=== PATIENT | female | born 1965 | race Caucasian/White ===

== ENCOUNTER 2018-08-12 12:15 | Inpatient (IN) ==
[2018-08-12 13:38] LABS: MCH 30.4 PG (27-31); MCHC 34.9 g/dL (33-37); MCV 87.2 FL (81-99); MPV 10.6 FL (7.4-10.4); RBC 4.93 XMIL (4.2-5.4); RDW 13.6 % (11.5-14.5); WBC 9.87 X1000 (4.8-10.8)
[2018-08-12 14:17] LABS: AGAP 15; BUN 13 mg/dL (8-22); CALCIUM 10.2 mg/dL (8.8-10.2); CHLORIDE 92 mmol/L (98-107); COSMO 264; CREATININE 0.9 mg/dL (0.5-0.9); ESTIMATED GFR > 60; GLUCOSE 88 mg/dL (70-104); POTASSIUM 4.1 mmol/L (3.5-5.1); SODIUM 132 mmol/L (136-145); TCO2 25 mmol/L (25-35)
--- NOTE | 2018-08-12 15:41 | Diag Imaging Result Doc PS360 ---
CT ANGIOGRAM AORTA W/RUNOFF - 08/12/2018 INDICATION: Left Ischemic LEG TECHNIQUE: Axial CT images were obtained after administering intravenous contrast. Three-dimensional angiographic images were generated. COMPARISON: None FINDINGS: The lung bases are clear and the heart size is normal. Abdominal organs are all normal. No bowel obstruction or inflammation. The abdominal aorta is grossly normal. The right common iliac is small in caliber and somewhat diseased proximally, with mild stenosis of about 25%. There is severe stenosis of the internal iliac artery with about 75% narrowing. There is also similarly severe stenosis of the external iliac artery. The common femoral artery demonstrates severe stenosis distally with about 75% narrowing. The deep femoral artery is patent. The superficial femoral artery is patent. The popliteal artery is patent. There is a three-vessel runoff to the right foot. The left common iliac artery and its branches are mostly all thrombosed. There is reconstitution of the left common iliac artery by an inferior epigastric branch. There is a very small caliber common femoral artery without much disease. Likewise, there is a very small caliber superficial and deep femoral artery without any significant stenosis. The popliteal artery is patent. The posterior tibial artery runs off to the foot. IMPRESSION: Peripheral vascular disease, mainly inflow disease. 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 Reconstitution of the left common femoral artery by an inferior epigastric branch. This exam was performed using automated exposure control, adjustment of mA or kV according to patient size, and/or use of iterative reconstruction technique Electronically signed by Cameron Shields 08/12/2018 3:39 PM
[2018-08-12 17:49] LABS: INR 0.89; PROTIME 12.7 Seconds (11.0-16.0)
[2018-08-12 17:50] LABS: PTT 29.9 Seconds (22.3-41.8)
[2018-08-12] MEDS ORDERED: HEPARIN IV ONE (17:53)
[2018-08-12] MEDS ORDERED: PNEUMOVAX 23 IM ONE (18:00)
[2018-08-12] MEDS: HEPARIN 25,000 UNITS/D5W 25,000 UNIT/250 ML IV.SOLN IV SCH (18:05)
[2018-08-12] MEDS ORDERED: NICODERM PATCH TD PRN (19:53)
[2018-08-12] MEDS: PRAVACHOL PO SCH (20:57)
[2018-08-12] MEDS: PLETAL PO SCH (20:57)
[2018-08-12] MEDS: NICODERM PATCH TD SCH (20:58)
[2018-08-13] MEDS: DILAUDID IV PRN ×3 (02:51→15:13)
[2018-08-13 08:28] LABS: BASO# 0.03 X1000 (0.0-0.2); BASO% 0.5 % (0.0-0.8); HEMATOCRIT 36.3 % (37.0-47.0); HEMOGLOBIN 12.7 g/dL (12.0-16.0); IMM GRAN% 1.5 % (0.0-0.5); LYMPH# 1.56 X1000 (1.2-3.4); LYMPH% 23.6 % (20.5-51.1); MCH 30.6 PG (27-31); MCV 87.5 FL (81-99); MONO# 0.87 X1000 (0.11-0.59); MONO% 13.2 % (1.7-9.3); NEUT# 3.84 X1000 (1.4-6.5); NEUT% 58.2 % (42.2-75.2); PLT 163 X1000 (130-400); RBC 4.15 XMIL (4.2-5.4); RDW 13.4 % (11.5-14.5)
[2018-08-13] MEDS: PLETAL PO SCH ×2 (09:10→20:46)
[2018-08-13] MEDS: PREDNISONE PO SCH (09:10)
[2018-08-13] MEDS: ASPIRIN PO SCH (09:10)
[2018-08-13] MEDS: NICODERM PATCH TD SCH (09:10)
--- NOTE | 2018-08-13 11:16 | HISTORY AND PHYSICAL ---
CHIEF COMPLAINT: Knot in the left hip; the whole left side is going numb for the last 2 months. HISTORY OF PRESENT ILLNESS: She is a 53-year-old white female who came to my office yesterday with the above symptoms for 2 months. Apparently, they started after getting treatment for multiple sclerosis by Dr. Cordova in [place]. In my office x-ray of the lumbar spine is negative. Neurological exam is intact. Straight leg raise test is negative. I am not able to feel any significant pulse on the left side of the foot. Subsequently, outpatient Doppler showed right ZHANE 1.0 and left side is not recordable. Flow pattern is monophasic, significant inflow disease suspicious with iliac artery disease. As a result, the patient is admitted to the hospital for resting ischemia. No signs of gangrene noted. The patient was started on aspirin, Pletal and IV heparin. CT angiogram was done, and based on that further recommendations will be followed. PAST MEDICAL HISTORY: Hypertension, hyperlipidemia, livedo reticularis noted, multiple sclerosis, metabolic syndrome, history of tobacco abuse. PAST SURGICAL HISTORY: Dental implants, hysterectomy, tubal ligation, inguinal hernia repair. MEDICATIONS: Ampyra 10 mg q daily, aspirin 325 daily, Zetia 10 mg daily, lisinopril/hydrochlorothiazide 20/12.5 p.o. b.i.d., potassium 10 mEq daily, metoprolol 50 p.o. b.i.d., Norvasc 5 mg daily, pravastatin 40 mg daily, Tysabri as directed. ALLERGIES: Sulfur drugs. SOCIAL HISTORY: Occupation is dispatcher. Lives in [place]. No smoking, no alcohol. Smoking for 30 years. with 1 son and 1 daughter. FAMILY HISTORY: Father 70 years old with hyperlipidemia and hypertension. Mom of CT, also related alcohol problems. REVIEW OF SYSTEMS: HEENT: No headache, no vision problem, no earache, no sore throat. NECK: No goiter. No lymphadenopathy. No bruit. CARDIOPULMONARY: No chest pain, shortness of breath, PND or orthopnea. GASTROINTESTINAL: No nausea, vomiting or abdominal pain. MUSCULOSKELETAL: Left leg pain. No weakness. NEUROLOGICAL: No focal symptoms or weakness. PHYSICAL EXAMINATION: VITAL SIGNS: Temperature 98.0; pulse 92; blood pressure 108/60; 5 feet 2; 135 pounds. HEENT: Atraumatic, normocephalic. Pupils equal and reactive to light. TMs are normal. Nose and throat within normal limits. NECK: Supple. No lymphadenopathy. No goiter. CHEST: Bilateral air entry. HEART: Sounds are regular. No murmur. ABDOMEN: Belly is soft and nontender. Good bowel sounds. EXTREMITIES: Decreased pulses in the left leg. NEUROLOGICAL: No neurologic deficits. No signs of gangrene. INVESTIGATIONS: CBC is normal. PT and INR are normal. SMA-[address] aortogram with runoff is pending. ASSESSMENT AND PLAN: 1. A 53-year-old white female admitted to the hospital with left leg pain due to vascular claudication. ZHANE is less than 0.2 with inflow disease. Plan is aspirin, Pletal, IV heparin. Consults with Dr. Aparicio. Follow up on pending results. 2. Keep LDL less than 70 and slowly Reconcile home medications and follow up. cc: Frankie Martinez MD MTDD
[2018-08-13] MEDS: ZOFRAN IV PRN (11:38)
[2018-08-13] MEDS: HEPARIN 25,000 UNITS/D5W 25,000 UNIT/250 ML IV.SOLN IV SCH (16:41)
[2018-08-13] MEDS: PRAVACHOL PO SCH (20:46)
--- NOTE | 2018-08-13 22:01 | PROGRESS NOTE ---
DATE: 08/13/2018 SUBJECTIVE: Patient complains of pain in the left leg. Withdrawal from smoking. No other complaints. PHYSICAL EXAMINATION: Vital Signs: Temperature is 98 degrees. Vitals are stable. HEENT: Exam within normal limits. Neck: Supple. Chest: Bilateral air entry. Heart: Sounds are regular. Abdomen: Belly is soft, nontender. Extremities: Decreased pulses in the left foot. No signs of gangrene. LABS: CBC is normal. ASSESSMENT AND PLAN: 1. Left leg ischemic. Ankle-brachial index less than 0.4, on aspirin, Pletal, intravenous heparin. Vascular consult for Dr. Aparicio. Discussed with Dr. Lees and Dr. Rivera. 2. Nicotine patches. 3. Check the lipid profile in the morning. 4. Continue present treatment and based on the vascular surgical consult, further recommendations will be followed. cc: Frankie Martinez MD
[2018-08-14] MEDS: DILAUDID IV PRN ×5 (05:48→23:05)
[2018-08-14 06:32] LABS: BASO# 0.01 X1000 (0.0-0.2); BASO% 0.1 % (0.0-0.8); EOS# 0.01 X1000 (0.0-0.7); EOS% 0.1 % (0.0-10.0); HEMATOCRIT 38.1 % (37.0-47.0); HEMOGLOBIN 13.4 g/dL (12.0-16.0); IMM GRAN# 0.05 X1000 (0.0-0.04); IMM GRAN% 0.5 % (0.0-0.5); LYMPH# 1.46 X1000 (1.2-3.4); LYMPH% 13.6 % (20.5-51.1); MCH 30.1 PG (27-31); MCHC 35.2 g/dL (33-37); MCV 85.6 FL (81-99); MONO# 1.06 X1000 (0.11-0.59); MONO% 9.9 % (1.7-9.3); MPV 10.9 FL (7.4-10.4); NEUT# 8.12 X1000 (1.4-6.5); NEUT% 75.8 % (42.2-75.2); PLT 213 X1000 (130-400); RBC 4.45 XMIL (4.2-5.4); WBC 10.71 X1000 (4.8-10.8)
--- NOTE | 2018-08-14 07:48 | GENERAL SURGERY CONSULTATION ---
DATE: 08/13/2018 REQUESTING PHYSICIAN: Dr. Martinez. REASON FOR CONSULTATION: Rest pain, left leg. HISTORY OF PRESENT ILLNESS: A 53-year-old female who has had 2 months of hurting pain in her left leg that occurs at rest, but is worse at night. She has been having some nausea, vomiting, has thrown up. She is a former smoker, quit in May, but was admitted by her primary care physician for this nausea and vomiting. I was asked to weigh an opinion. She had a CT angiogram that showed occlusion of the left common iliac. PAST MEDICAL HISTORY: Includes hypertension, hyperlipidemia, multiple sclerosis. PAST SURGICAL HISTORY: Includes hysterectomy, bilateral hernia repair. FAMILY HISTORY: Positive for heart attack. ALLERGIES: Sulfa. HOME MEDICATIONS: Reviewed. Of note, she is on aspirin and Pletal. REVIEW OF SYSTEMS: A full 10-point review of systems was obtained and negative, except as specified in HPI. PHYSICAL EXAMINATION: Vital Signs: The patient is currently afebrile. Her vital signs are stable. General: No acute distress. HEENT: Normocephalic, atraumatic. Pupils equal, round, and reactive to light. Mucous membranes moist. Oropharynx benign. Neck: Supple. Trachea midline. Cardiovascular: Regular rate and rhythm. Lungs: Grossly clear. Abdomen: Soft, nontender, nondistended. Extremities: Both legs appear to be perfused. She does have decreased femoral pulse on the left side, but both sides appear to be perfused, and no threatened limbs. Extremities: Moves all extremities. Neurologic: Grossly intact. Skin: No signs of jaundice. IMAGING AND LABORATORY DATA: White blood cell count is normal, hematocrit is normal. Remainder of labs were reviewed. CT scan independently reviewed, and radiology report reviewed. ASSESSMENT AND PLAN: A 53-year-old female with chronic ischemia to the left leg. Chronic ischemia to the left leg. At this time, she will likely need a femoral/femoral bypass, but currently the leg is not threatened. Will continue with aspirin and Pletal. Will evaluate with Dr. Aparicio when he comes back, but otherwise continue supportive care. cc: MD Frankie Richards MD
[2018-08-14] MEDS: NICODERM PATCH TD SCH (08:12)
[2018-08-14] MEDS: ASPIRIN PO SCH (08:12)
[2018-08-14] MEDS: PLETAL PO SCH ×2 (08:13→20:26)
[2018-08-14] MEDS: PREDNISONE PO SCH (08:13)
[2018-08-14] MEDS: ZOFRAN IV PRN ×3 (11:59→23:06)
--- NOTE | 2018-08-14 12:29 | GENERAL SURGERY PROGRESS NOTE ---
DATE: 08/14/2018 SUBJECTIVE: The patient seems to be doing about the same. She is still having some left-sided pain. OBJECTIVE: Vital Signs: The patient is currently afebrile. Her vital signs are stable. General Examination: No acute distress. HEENT: Normocephalic, atraumatic. Pupils equal, round, reactive to light. Mucous membranes moist. Oropharynx benign. Neck: Supple. Trachea midline. Cardiovascular: Regular rate and rhythm. Lungs: Grossly clear. Abdomen: Soft, nontender, nondistended. Extremities: Left leg not threatened. There is at least some collateral perfusion down to the foot that appears to be the same color as the right. She is able to move all extremities. Neurologic: Seems to be grossly intact. Laboratory: None this morning as of yet. ASSESSMENT AND PLAN: A 53-year-old with underlying vascular disease of the left leg. Underlying vascular disease. At this time, we will continue supportive care. We will have to wait for Dr. Aparicio to be back before we can intervene. She will likely need a femorofemoral bypass or even a potential angioplasty. We will also have to wait for supplies to be available. Otherwise, continue supportive care. Dr. Martinez has been updated. cc: MD Frankie Richards MD
[2018-08-14] MEDS: HEPARIN 25,000 UNITS/D5W 25,000 UNIT/250 ML IV.SOLN IV SCH (17:20)
[2018-08-14] MEDS: PRAVACHOL PO SCH (20:26)
--- NOTE | 2018-08-14 20:29 | VASCULAR LAB ---
PROCEDURE NAME: Arterial Bilateral Legs - 08/12/2018 REQUESTING PHYSICIAN: Dr. Martinez. CANVAS CUTTER: Betsy. INDICATIONS: Occlusion, left lower extremity. FINDINGS: Segmental pressures are as follows: Right brachial 135, left 117. Right proximal thigh 141, left 73. Right distal thigh 135, left 65. Right popliteal 158, left 60. Right dorsalis pedis 141, left 51. Right posterior tibial 129, left 57. Right great toe 135, left 27. Right ZHANE 1.04, left 0.42. Right TBI 1.00, left 0.20. Waveform analysis: Waveforms appear to be intact and prominent on the right side. They are very diminished on the left side through the entirety of this studied area. INTERPRETATION: Likely common iliac disease on the left side given findings. The patient's ankle- brachial indices suggest moderate to severe disease. cc: MD Frankie Richards MD
--- NOTE | 2018-08-14 22:19 | PROGRESS NOTE ---
DATE: 08/14/2018 SUBJECTIVE: The patient is doing better. OBJECTIVE: Left foot: No signs of gangrene noted. Physical exam no change. On examination, temperature is 98 degrees, vital signs are stable. HEENT exam within normal limits. Neck is supple. No signs of gangrene. ASSESSMENT AND PLAN: Left ischemic leg. Continue present medical therapy. Obviously, they have some problems getting supplies. The patient needs most likely angioplasty versus femoral to femoral bypass. I appreciate Dr. Lees consult. We will continue to monitor. Level of documentation 25 minutes. cc: Frankie Martinez MD
[2018-08-15] MEDS: DILAUDID IV PRN ×5 (03:27→20:45)
[2018-08-15 06:21] LABS: BASO# 0.01 X1000 (0.0-0.2); BASO% 0.1 % (0.0-0.8); EOS# 0.01 X1000 (0.0-0.7); EOS% 0.1 % (0.0-10.0); HEMATOCRIT 36.3 % (37.0-47.0); HEMOGLOBIN 12.7 g/dL (12.0-16.0); IMM GRAN# 0.07 X1000 (0.0-0.04); IMM GRAN% 0.6 % (0.0-0.5); LYMPH# 1.89 X1000 (1.2-3.4); LYMPH% 15.8 % (20.5-51.1); MCH 30.2 PG (27-31); MCV 86.4 FL (81-99); MONO# 1.16 X1000 (0.11-0.59); MONO% 9.7 % (1.7-9.3); MPV 11.2 FL (7.4-10.4); NEUT# 8.83 X1000 (1.4-6.5); NEUT% 73.7 % (42.2-75.2); PLT 203 X1000 (130-400); RDW 12.9 % (11.5-14.5); WBC 11.97 X1000 (4.8-10.8)
[2018-08-15] MEDS: PLETAL PO SCH ×2 (08:37→20:45)
[2018-08-15] MEDS: NICODERM PATCH TD SCH (08:37)
[2018-08-15] MEDS: PREDNISONE PO SCH (08:37)
[2018-08-15] MEDS: ASPIRIN PO SCH (08:37)
[2018-08-15] MEDS: PRINZIDE 20/12.5MG PO SCH ×2 (09:09→20:46)
[2018-08-15] MEDS: ZETIA PO SCH (09:10)
[2018-08-15] MEDS: KLOR-CON PO SCH (09:10)
[2018-08-15] MEDS: ZOFRAN IV PRN ×2 (11:39→15:39)
--- NOTE | 2018-08-15 13:50 | GENERAL SURGERY PROGRESS NOTE ---
DATE: 08/15/2018 ASSESSMENT AND PLAN: The patient's leg still seems to be perfused. I suspect we will have supplies next week for potential graft versus angioplasty. Dr. Aparicio will also be back next week. We will discuss with him. cc: MD Frankie Richards MD
[2018-08-15] MEDS: HEPARIN 25,000 UNITS/D5W 25,000 UNIT/250 ML IV.SOLN IV SCH (16:15)
[2018-08-15] MEDS: PRAVACHOL PO SCH (20:46)
--- NOTE | 2018-08-15 22:12 | PROGRESS NOTE ---
DATE: 08/15/2018 SUBJECTIVE: The patient still in pain. No other complaints. Wants to reconcile home medicines. EXAMINATION: Temperature is 98 degrees, pulse 88, blood pressure is stable.HEENT: Within normal limits. Neck: Supple. Chest: Bilateral air entry. Heart: Sounds are regular. Belly: Is soft, nontender. No signs of gangrene noted. INVESTIGATIONS: CBC. White cell count 11, hematocrit 36, platelets 203,000. ASSESSMENT AND PLAN: 1. Left leg ischemic on aspirin, Pletal, intravenous heparin. Waiting to re-vascular. Consult on Saturday. 2. Hyperlipidemia on Pravachol and Zetia. 3. Hypertension on lisinopril/hydrochlorothiazide 1 tablet p.o. b.i.d. Nicotine patches. 4. History of multiple sclerosis on prednisone, will hold the other medications. Continue present treatment over the weekend. LEVEL OF DOCUMENTATION: 25 minutes. cc: Frankie Martinez MD
[2018-08-16] MEDS: DILAUDID IV PRN ×6 (01:26→22:59)
[2018-08-16] MEDS: ASPIRIN PO SCH (09:00)
[2018-08-16] MEDS: PRINZIDE 20/12.5MG PO SCH ×2 (09:00→21:42)
[2018-08-16] MEDS: KLOR-CON PO SCH (09:00)
[2018-08-16] MEDS ORDERED: PREDNISONE PO SCH (09:00)
[2018-08-16] MEDS: ZETIA PO SCH (09:01)
[2018-08-16] MEDS: PLETAL PO SCH ×2 (09:01→21:42)
[2018-08-16] MEDS: PREDNISONE PO SCH (09:01)
[2018-08-16] MEDS: NICODERM PATCH TD SCH (09:01)
[2018-08-16] MEDS: ZOFRAN IV PRN ×3 (11:07→18:46)
[2018-08-16] MEDS ORDERED: HEPARIN 25,000 UNITS/D5W 25,000 UNIT/250 ML IV.SOLN IV SCH ×2 (16:52→17:02)
--- NOTE | 2018-08-16 18:42 | GENERAL SURGERY PROGRESS NOTE ---
DATE: 08/16/2018 SUBJECTIVE: Continues to have some discomfort in her left leg, but not severe. No fevers. No tachycardia. Blood pressure 102/67, oxygen saturation 97%. OBJECTIVE: General: She is alert. Cardiovascular: Normal rate. Extremities: Bilateral feet are warm with no necrosis. No wounds. LABS: No labs this morning. She is on a heparin drip. ASSESSMENT AND PLAN: A 53-year-old female with iliac occlusion and rest pain. Plan is for a vascular intervention when Dr. Aparicio gets back. We will continue pain control. No acute limb- threatening ischemia noted with no tissue loss. We will continue to follow along. cc: MD Frankie Crowell MD
[2018-08-16] MEDS: HEPARIN 25,000 UNITS/D5W 25,000 UNIT/250 ML IV.SOLN IV SCH (18:46)
[2018-08-16] MEDS: PRAVACHOL PO SCH (21:42)
[2018-08-17] MEDS: DILAUDID IV PRN ×4 (02:08→21:44)
[2018-08-17] MEDS: ZOFRAN IV PRN ×3 (06:41→18:06)
[2018-08-17] MEDS: KLOR-CON PO SCH (08:48)
[2018-08-17] MEDS: PREDNISONE PO SCH (08:49)
[2018-08-17] MEDS: PRINZIDE 20/12.5MG PO SCH ×2 (08:49→21:43)
[2018-08-17] MEDS: PLETAL PO SCH ×2 (08:49→21:43)
[2018-08-17] MEDS: ZETIA PO SCH (08:49)
[2018-08-17] MEDS: ASPIRIN PO SCH (08:49)
[2018-08-17] MEDS: NICODERM PATCH TD SCH (10:17)
--- NOTE | 2018-08-17 13:51 | GENERAL SURGERY PROGRESS NOTE ---
DATE: 08/17/2018 SUBJECTIVE: Leg is about the same. No fevers. OBJECTIVE: Pulse 86, blood pressure 122/76. General: She is alert. Her left foot is warm with no tissue loss. Cardiovascular: Normal rate. ASSESSMENT AND PLAN: A 53-year-old female with left iliac occlusion. Plan is for revascularization. Dr. Aparicio will be back tomorrow. We will discuss with him. Most likely, will require a femoral to femoral bypass. We will continue to follow for pain control and she is on heparin. cc: MD Frankie Crowell MD
[2018-08-17] MEDS: HEPARIN 25,000 UNITS/D5W 25,000 UNIT/250 ML IV.SOLN IV SCH (16:51)
[2018-08-17] MEDS: PRAVACHOL PO SCH (21:43)
[2018-08-18] MEDS: DILAUDID IV PRN ×7 (00:42→20:59)
--- NOTE | 2018-08-18 04:23 | PROGRESS NOTE ---
DATE: 08/16/2018 SUBJECTIVE: Ms. Fisher has ischemic left leg. Pulse is still feeble. She has ischemia. She is on IV heparin. White count was 11.97, hemoglobin 12.7, hematocrit is 36.3. We will continue with the current management on her. -8 cc: MD Frankie Reza MD
--- NOTE | 2018-08-18 04:29 | PROGRESS NOTE ---
DATE: 08/17/2018 SUBJECTIVE: Ms. Shah has ioynjmcw-yv-[id number] disease in the left femoral iliac group of arteries, and so far, her foot is warm. There are no color changes. Her vital signs are stable. She is getting IV heparin. Will continue the current management. -4 cc: MD Frankie Reza MD
[2018-08-18] MEDS: ZOFRAN IV PRN ×2 (06:50→13:40)
[2018-08-18] MEDS: ZETIA PO SCH (09:18)
[2018-08-18] MEDS: NICODERM PATCH TD SCH ×2 (09:18→09:23)
[2018-08-18] MEDS: ASPIRIN PO SCH (09:18)
[2018-08-18] MEDS: PLETAL PO SCH ×2 (09:19→21:05)
[2018-08-18] MEDS: KLOR-CON PO SCH (09:19)
[2018-08-18] MEDS: PREDNISONE PO SCH (09:20)
[2018-08-18] MEDS: PRINZIDE 20/12.5MG PO SCH ×2 (09:24→20:56)
[2018-08-18] MEDS ORDERED: KEFZOL 1 GM/D5W 1 GM/50 ML IVPB IV ONE (15:29)
--- NOTE | 2018-08-18 15:55 | GENERAL SURGERY PROGRESS NOTE ---
DATE: 08/18/2018 SUBJECTIVE: Ms. Fisher is a 53-year-old with an occluded left iliac and claudication in her left leg. OBJECTIVE: She has a normal femoral pulse on the right but an absent femoral pulse on the left. She has satisfactory pedal pulses on the right foot but none on the left. DIAGNOSTIC STUDIES: Her CTA shows a left iliac occlusion with reconstitution of her common femoral. PLAN: The plan will be a femoral-femoral bypass, possible left femoral endarterectomy. I have discussed the procedure with her, the benefits and risks. She understands and she wants to proceed. She says she has quit smoking. cc: MD Frankie Herrera MD
--- NOTE | 2018-08-18 20:49 | PROGRESS NOTE ---
DATE: 08/18/2018 SUBJECTIVE: The patient still complains of resting pain. I appreciate Dr. Aparicio. PHYSICAL EXAMINATION: Vital Signs: Temperature is 98 degrees, pulse 76. Vitals are stable. HEENT: Exam within normal limits. Neck: Supple. Chest: Clear. Heart: Heart sounds are regular. Physical exam: No change. ASSESSMENT AND PLAN: Left leg ischemic, waiting to be consulted by Dr. Aparicio. Follow up his plans. In the meantime, continue on aspirin, Pletal, intravenous heparin, which was discontinued. Patient is planning for angioplasty with femoral-femoral bypass. Secondary prevention which includes quit smoking, LDL less than 70, and will follow up. cc: Frankie Martinez MD
[2018-08-18] MEDS: PRAVACHOL PO SCH (21:00)
[2018-08-19] MEDS: DILAUDID IV PRN ×6 (00:57→23:20)
--- NOTE | 2018-08-19 07:34 | EKG Report ---
Test Performed on : 08/19/2018 06:51:52 AM Test Reason : CP Blood Pressure : / mmHG Vent. Rate : 100 BPM Atrial Rate : 100 BPM P-R Int : 112 ms QRS Dur : 088 ms QT Int : 330 ms P-R-T Axes : 055 044 118 degrees QTc Int : 425 ms Normal sinus rhythm. ST & T wave abnormality, consider lateral ischemia Abnormal ECG No previous ECGs available Confirmed by Siva CARPENTER, Leonel Ryder ([id number]) on 08/19/2018 5:30:59 PM
[2018-08-19] MEDS: ZOFRAN IV PRN ×2 (08:14→15:56)
[2018-08-19] MEDS ORDERED: KEFZOL 1 GM/D5W 1 GM/50 ML IVPB ONE (09:56)
[2018-08-19] MEDS ORDERED: VERSED ONE (10:29)
[2018-08-19] MEDS ORDERED: MARCAINE 0.25% PF/EPI 1:200,000 ONE (10:35)
[2018-08-19] MEDS ORDERED: KEFZOL ONE (10:35)
[2018-08-19] MEDS ORDERED: HEPARIN ONE (10:35)
[2018-08-19] MEDS ORDERED: NS 1,000 ML ONE (10:36)
[2018-08-19] MEDS ORDERED: NS 0 ML ONE (10:57)
[2018-08-19] MEDS ORDERED: DILAUDID ONE (11:05)
[2018-08-19 11:18] LABS: URINE SOURCE CATH
[2018-08-19] MEDS ORDERED: ZEMURON ONE (11:19)
[2018-08-19] MEDS ORDERED: HEPARIN (DOSE) ONE (11:19)
[2018-08-19 11:23] LABS: BILIRUBIN URINE NEGATIVE (NEGATIVE); BLOOD URINE NEGATIVE (NEGATIVE); COLOR YELLOW; GLUCOSE URINE NEGATIVE (NEGATIVE); KETONE URINE NEGATIVE (NEGATIVE); LEUKOCYTES URINE NEGATIVE (NEGATIVE); NITRITE URINE NEGATIVE (NEGATIVE); PROTEIN URINE TRACE mg/dL (NEGATIVE); TURBIDITY URINE CLEAR (CLEAR); UROBILINOGEN URINE 2 mg/dL (NORMAL)
[2018-08-19 11:24] LABS: UR EPITHELIAL CELLS <10 /HPF (<10); URINE BACTERIA NEGATIVE /HPF; URINE RBC <10 /HPF (<10); URINE WBC <10 /HPF (<10)
[2018-08-19] MEDS ORDERED: PITRESSIN ONE (11:30)
[2018-08-19] MEDS ORDERED: NEO-SYNEPHRINE ONE (11:40)
[2018-08-19] MEDS: ZETIA PO SCH (11:49)
[2018-08-19] MEDS: ASPIRIN PO SCH (11:49)
[2018-08-19] MEDS: KLOR-CON PO SCH (11:50)
[2018-08-19] MEDS: PLETAL PO SCH (11:50)
[2018-08-19] MEDS: PRINZIDE 20/12.5MG PO SCH ×2 (11:50→20:11)
[2018-08-19] MEDS: NICODERM PATCH TD SCH (11:51)
[2018-08-19] MEDS: DILAUDID ONE ×2 (13:00→13:07)
--- NOTE | 2018-08-19 14:04 | OPERATIVE NOTE ---
PROCEDURE DATE: 08/19/2018 NAME OF THE PROCEDURE: Femoral-femoral bypass. SURGEON: Cleve Aparicio MD. VOLCANOLOGY PROFESSOR: Chip Weston RN. PREOPERATIVE DIAGNOSIS: Left iliac occlusion with claudication. POSTOPERATIVE DIAGNOSIS: Left iliac occlusion with claudication. DESCRIPTION OF PROCEDURE: After satisfactory general endotracheal anesthesia, the abdomen, groins and proximal thighs were prepped and draped in a sterile fashion. We used an Ioban drape. Prophylactic Kefzol was given. A vertical incision was made in the left groin, dissected down to the subcutaneous tissue to the common femoral artery. We surrounded it with an umbilical tape. The branch vessels were surrounded with vessel loops. An antibiotic sponge was placed in the wound. We then turned our attention to the right side and again made a vertical incision in the groin and dissected down to the common femoral artery, surrounded it with an umbilical tape proximally and a vessel loop distally. We did not dissect the branch vessels out on the right. We tunneled an 8 mm collagen-impregnated Dacron Hemashield Gold graft, 7000 units of heparin were then given. After the heparin had circulated for 3 minutes, we then clamped the right common femoral with an angled DeBakey clamp and used a vessel loop distally. We incised the artery on its anterior aspect and we did this for about 1.5 cm. We cut the graft to match the arteriotomy in a tapered fashion. We passed dilators down the vessel and it would admit up to a 4 dilator. There was back-bleeding present. We then constructed the anastomosis using a 5-0 Prolene stitch and upon completion of the anastomosis, we clamped off the graft and allowed flow in the jamul vessel. Hemostasis was satisfactory. There was flow noted and a pulse noted distal to the anastomosis. We turned our attention the left groin then, occluded flow in the branch vessels with the vessel loops and clamped off the common femoral proximally. We then incised the artery on its anterior aspect for 2.5 cm, coming right to the bifurcation of the common femoral. Again, we passed all the way up to a 4 mm dilator through the superficial femoral and deep femoral vessels and back-bleeding occurred from both. Minimal antegrade flow was present. We then cut the graft to match the arteriotomy and constructed again the anastomosis with a 5-0 Prolene stitch. Upon completion, we back-bled the branch vessels, flushed the graft, flow was present. We then finished the anastomosis. Flow was then allowed. One additional stitch was required laterally to achieve complete hemostasis of the left femoral anastomosis. We irrigated out both groins with Kefzol-impregnated saline. We closed the groins in layers with 3-0 Polysorb interrupted simple stitches first and then followed by 2-0 Polysorb running subcutaneous stitch. The skin was then closed with a 4-0 Polysorb subcuticular stitch on both sides. Sterile dressings were applied. She tolerated it well, was sent to the recovery room in satisfactory condition. cc: MD Frankie Herrera MD
[2018-08-19] MEDS: KEFZOL 1 GM/D5W 1 GM/50 ML IVPB IV SCH (17:50)
--- NOTE | 2018-08-19 18:45 | GENERAL SURGERY PROGRESS NOTE ---
DATE: 08/19/2018 SUBJECTIVE: Ms. Fisher is now about 6 hours postop. OBJECTIVE: She has a mild hematoma in the left groin. No active bleeding is present. Otherwise her wounds are fine. ASSESSMENT/PLAN: The bandage on the left groin was replaced. She has a palpable foot pulse on the left. Her legs are warm. cc: MD Frankie Herrera MD
[2018-08-19] MEDS: PRAVACHOL PO SCH (20:11)
--- NOTE | 2018-08-19 21:22 | PROGRESS NOTE ---
DATE: 08/19/2018 SUBJECTIVE: I appreciated Dr. Aparicio's consult. The patient is going for fem-fem bypass. OBJECTIVE/PHYSICAL EXAMINATION: Vital Signs: Temperature is 98. Vitals are stable. HEENT: Exam within normal limits. Neck: Supple. Chest: Clear. Cardiovascular: Heart sounds are regular. ASSESSMENT AND PLAN: Ischemic leg, impending gangrene. Waiting for revascularization. Appreciated Dr. Aparicio's consult. Check labs in the morning. Continue present treatment, Zetia and Pravachol for hyperlipidemia. Quit smoking, on Nicotrol patch, and will follow up. LEVEL OF DOCUMENTATION: 15 minutes. cc: Frankie Martinez MD
[2018-08-20] MEDS: DILAUDID IV PRN ×3 (02:31→08:30)
[2018-08-20] MEDS: KEFZOL 1 GM/D5W 1 GM/50 ML IVPB IV SCH ×3 (02:31→17:08)
[2018-08-20] MEDS: PRINZIDE 20/12.5MG PO SCH ×2 (08:09→20:06)
[2018-08-20] MEDS: ZETIA PO SCH (08:09)
[2018-08-20] MEDS: KLOR-CON PO SCH (08:09)
[2018-08-20] MEDS: ASPIRIN PO SCH (08:09)
[2018-08-20] MEDS: NICODERM PATCH TD SCH (08:10)
[2018-08-20 09:12] LABS: BASO# 0.07 X1000 (0.0-0.2); BASO% 0.7 % (0.0-0.8); EOS# 0.21 X1000 (0.0-0.7); HEMATOCRIT 33.3 % (37.0-47.0); HEMOGLOBIN 11.6 g/dL (12.0-16.0); IMM GRAN# 0.36 X1000 (0.0-0.04); IMM GRAN% 3.4 % (0.0-0.5); LYMPH# 1.74 X1000 (1.2-3.4); LYMPH% 16.6 % (20.5-51.1); MCH 30.2 PG (27-31); MCHC 34.8 g/dL (33-37); MCV 86.7 FL (81-99); MONO# 1.32 X1000 (0.11-0.59); MONO% 12.6 % (1.7-9.3); MPV 11.1 FL (7.4-10.4); NEUT# 6.78 X1000 (1.4-6.5); NEUT% 64.7 % (42.2-75.2); PLT 211 X1000 (130-400); RBC 3.84 XMIL (4.2-5.4); WBC 10.48 X1000 (4.8-10.8)
[2018-08-20 10:04] LABS: ESTIMATED GFR > 60
[2018-08-20 10:09] LABS: AGAP 14; BUN 11 mg/dL (8-22); CALCIUM 8.9 mg/dL (8.8-10.2); CHLORIDE 86 mmol/L (98-107); COSMO 250; CREATININE 0.9 mg/dL (0.5-0.9); GLUCOSE 114 mg/dL (70-104); POTASSIUM 3.7 mmol/L (3.5-5.1); SODIUM 124 mmol/L (136-145); TCO2 24 mmol/L (25-35)
[2018-08-20] MEDS: NORCO-7.5 PO PRN ×3 (11:30→20:06)
--- NOTE | 2018-08-20 18:42 | GENERAL SURGERY PROGRESS NOTE ---
DATE: 08/20/2018 TIME: It is 3:45 in the afternoon. SUBJECTIVE: Ms. Fisher has no increase in hematoma. She has palpable pedal pulses. I would think she should be ready for discharge by tomorrow. cc: MD Frankie Herrera MD
[2018-08-20] MEDS: PRAVACHOL PO SCH (20:06)
--- NOTE | 2018-08-20 20:09 | PROGRESS NOTE ---
DATE: 08/20/2018 SUBJECTIVE: The patient is a little better and left foot palpable pulses. EXAMINATION: Vital signs: Temperature is 98 degrees. Vitals are stable. HEENT: Within normal limits. Neck: Supple. Chest: Clear. Extremities: Left foot color has picked up. INVESTIGATIONS: CBC: White cell count 10, hematocrit 33, platelets 211,000. Sodium 124, potassium 3.7, BUN 11, creatinine 0.9. Urinalysis is clear. ASSESSMENT AND PLAN: 1. Postoperative day 2 fem-fem bypass for left iliac occlusion. 2. Discontinue Leung. 3. Hyponatremia. We will watch. Repeat the labs in the morning. LEVEL DOCUMENTATION: 25 minutes. cc: Frankie Martinez MD
[2018-08-21] MEDS: NORCO-7.5 PO PRN ×4 (00:23→14:03)
[2018-08-21] MEDS: KEFZOL 1 GM/D5W 1 GM/50 ML IVPB IV SCH ×3 (02:41→18:14)
[2018-08-21 07:02] LABS: BASO# 0.07 X1000 (0.0-0.2); BASO% 0.7 % (0.0-0.8); EOS# 0.33 X1000 (0.0-0.7); EOS% 3.5 % (0.0-10.0); HEMATOCRIT 35.6 % (37.0-47.0); HEMOGLOBIN 12.5 g/dL (12.0-16.0); IMM GRAN# 0.35 X1000 (0.0-0.04); IMM GRAN% 3.7 % (0.0-0.5); LYMPH# 2.12 X1000 (1.2-3.4); LYMPH% 22.5 % (20.5-51.1); MCH 30.6 PG (27-31); MCHC 35.1 g/dL (33-37); MONO# 1.17 X1000 (0.11-0.59); MONO% 12.4 % (1.7-9.3); MPV 10.8 FL (7.4-10.4); NEUT# 5.37 X1000 (1.4-6.5); NEUT% 57.2 % (42.2-75.2); PLT 242 X1000 (130-400); RBC 4.09 XMIL (4.2-5.4); RDW 13.3 % (11.5-14.5); WBC 9.41 X1000 (4.8-10.8)
[2018-08-21 07:19] LABS: LYMPHS 23 % (21-51); MONO 12 % (1-9); SEGS 65 % (42-75)
[2018-08-21 07:20] LABS: CALCIUM 9.3 mg/dL (8.8-10.2); POTASSIUM 4.3 mmol/L (3.5-5.1)
[2018-08-21] MEDS ORDERED: NS 1,000 ML IV ONE (07:51)
[2018-08-21] MEDS: KLOR-CON PO SCH (08:57)
[2018-08-21] MEDS: ZETIA PO SCH (08:57)
[2018-08-21] MEDS: NICODERM PATCH TD SCH (08:57)
[2018-08-21] MEDS: ASPIRIN PO SCH (08:57)
[2018-08-21] MEDS: PRINZIDE 20/12.5MG PO SCH (09:05)
[2018-08-21] MEDS ORDERED: PNEUMOVAX 23 IM ONE (09:07)
--- NOTE | 2018-08-21 14:23 | GENERAL SURGERY PROGRESS NOTE ---
DATE: 08/21/2018 Ms. Fisher is now 2 days after femoral-femoral bypass. Her wounds are doing fine. She has ecchymosis but this will resolve. Her feet are warm. I redressed her wounds. She is ready for discharge from my perspective. She is to return to see me in the office on September 01. cc: MD Frankie Herrera MD
[2018-08-21 19:45] VITALS: BP 119/85
--- NOTE | 2018-08-24 20:05 | DISCHARGE SUMMARY ---
ADMISSION DATE: 08/12/2018 DISCHARGE DATE: 08/21/2018 DISCHARGING DIAGNOSIS: Left leg claudication with resting ischemia due to left common iliac artery occlusion. SECONDARY DIAGNOSES: 1. Hypertension. 2. Hyperlipidemia. 3. Livedo reticularis. 4. Multiple sclerosis. 5. Metabolic syndrome. 6. Tobacco abuse. CONSULTS: Dr. Aparicio. PROCEDURES: 1. Femoral-femoral bypass graft. 2. Extremity arterial study. Right ZHANE 1.0, left side is 0.42, right TBI 1.0, left side is 0.20. 3. CT arteriogram with runoff: Complete thrombosis and tight left iliac artery system. Reconstitution of left common femoral artery by inferior epigastric branch. BRIEF HISTORY: Please see the H P that was done on 08/12/2018. In brief, she is a 53-year-old white female with above problems. Was admitted to the hospital with incessant left leg pain, not able to ambulate. She had decreased pulses. ZHANE 0.4. Further workup revealed significant left common iliac artery thrombosis. Patient was given aspirin and Pletal, IV heparin. Vascular consult was obtained. Unfortunately, they do not have any grafts. Basically, under diversion unless patient has impending gangrene. As a result, hospital course was prolonged. Dr. Aparicio was consulted. Subsequently, patient had a femoral-femoral bypass surgery. The patient has good pulses. Postoperative course complicated by hyponatremia requiring IV fluids. LABS: As follows: CBC: White cell count 9.4, hematocrit 35, platelets 242,000. Sodium 125, potassium 4.3, BUN 15, creatinine 1.0, glucose 141. DISCHARGE INSTRUCTIONS: As follows: 1. Pravastatin 40 mg at bedtime and Zetia 10 daily, potassium 20 mEq daily, lisinopril/hydrochlorothiazide 20/12.5 p.o. b.i.d., tramadol for p.r.n. pain. 2. Outpatient home health care. 3. Resume the medicines for multiple sclerosis by Dr. Cordova in [place]. Patient is on Ampyra 10 mg p.o. q.12 and recently patient did receive Tysabri. 4. I am going to hold the blood pressure medicine, which includes metoprolol and Norvasc and lisinopril, and then follow up in my office in 2 weeks as well as Dr. Aparicio. 5. Also, patient was advised to quit smoking and keep the LDL less than 70. cc: Dr. Markus Martinez MD
== END 2018-08-21 20:24 | disposition home or self-care (01) | DRG 253 ==
LOC: DIRADM → OBSVTOIN 12:15 → 4N 12:42
PROVIDERS: ADMIT Internal Medicine; ATTEND Internal Medicine